=== PATIENT | female | born 1940 | race Caucasian/White ===

== ENCOUNTER 2023-11-13 13:51 | Inpatient (IN) | payer MEDICARE, OTHER ==
[~2023-11-13] VITALS: Ht 165.1 cm; Wt 60.8 kg
[2023-11-13 14:18] LABS: BASOPHILS # (AUTO) 0.1 K/UL (0.0-0.2); EOSINOPHILS % (AUTO) 0.6 % (0.0-7.0); HEMOGLOBIN 13.4 g/dL (10.9-14.3); LYMPHOCYTES # (AUTO) 0.9 K/uL (0.8-4.8); MEAN CORPUSCULAR HEMOGLOBIN 28.8 uug (24.7-32.8); MEAN CORPUSCULAR HGB CONC 32 g/dL (32.3-35.6); MEAN CORPUSCULAR VOLUME 90.3 fL (75.5-95.3); MONOCYTES # (AUTO) 0.9 K/uL (0.1-1.30); NEUTROPHILS # (AUTO) 3.7 K/uL (1.8-8.9); NEUTROPHILS % (AUTO) 66.4 % (38.5-71.5); PLATELET COUNT (AUTO) 155 K/uL (179-408); RED BLOOD CELL COUNT(AUTO) 4.65 MIL/uL (3.63-4.92); RED CELL DISTRIBUTION WIDTH 19.4 % (12.3-17.7); WHITE BLOOD COUNT (AUTO) 5.5 K/uL (3.8-11.8)
[2023-11-13 14:19] LABS: DIFFERENTIAL COMMENT 1
[2023-11-13] MEDS ORDERED: DILTIAZEM HCL 25 MG IV ONE ×2 (14:28→17:23)
[2023-11-13 14:42] LABS: MAGNESIUM 2.1 mg/dL (1.8-2.4)
[2023-11-13 14:43] LABS: CARBON DIOXIDE 28 mmol/L (21-32); CHLORIDE 105 mmol/L (98-107); POTASSIUM 3.6 mmol/L (3.5-5.1); SODIUM SERUM 143 mmol/L (136-145)
[2023-11-13 14:44] LABS: CALCIUM 8.4 mg/dL (8.5-10.1); CREATININE 0.5 mg/dL (0.6-1.3); GLUCOSE 129 mg/dL (74-106); UREA NITROGEN, BLOOD 33 mg/dL (7-18)
[2023-11-13] MEDS: DILTIAZEM HCL 25 MG IV IV ONE ×2 (14:45→17:33)
[2023-11-13] MEDS: IV NORMAL SALINE 1000 ML BAG IV ONE (14:45)
[2023-11-13 14:47] LABS: *BLOOD, URINE NEGATIVE (NEGATIVE); *CLARITY,URINE CLEAR (CLEAR); *COLOR,URINE YELLOW (YELLOW); *PROTEIN,URINE 1+ (NEGATIVE); PH,URINE 6.5 (5.0-8.0); UGLUCOSE NEGATIVE (NEGATIVE)
[2023-11-13 14:48] LABS: *BILIRUBIN,URIN NEGATIVE (NEGATIVE); *KETONES,URINE 4+ (NEGATIVE); *UROBILINOGEN,URINE 0.2 E.U./dl (NORMAL); LEUKOCYTE ESTERASE ,URINE 2+ (NEGATIVE); NITRITE, URINE NEGATIVE (NEGATIVE)
[2023-11-13 14:51] LABS: ALANINE AMINOTRANSFERASE 35 U/L (14-59); ALKALINE PHOSPHATASE 105 U/L (50-136); ASPARTATE AMINOTRANSFERASE 37 U/L (15-37); BILIRUBIN,DIRECT 0.6 mg/dL (0.0-0.2); BILIRUBIN,TOTAL 1.1 mg/dL (0.2-1.0)
[2023-11-13 14:52] LABS: ALBUMIN 2.3 g/dL (3.4-5.0); TOTAL PROTEIN, SERUM 5.9 g/dL (6.4-8.2)
[2023-11-13 14:57] LABS: THYROID STIMULATING HORMONE 7.749 mIU/mL (0.358-3.740)
[2023-11-13] MEDS ORDERED: ENOXAPARIN SODIUM 60 MG/0.6 ML DISP.SYRIN SQ ONE (15:39)
[2023-11-13] MEDS: ENOXAPARIN SODIUM 60 MG/0.6 ML DISP.SYRIN SQ ONE (15:51)
[2023-11-13 16:19] LABS: BACTERIA,URINE FEW /HPF (NONE SEEN); RBC,URINE 0-3 /HPF (0-3); SQUAMOUS EPITHELIAL CELL,UR MANY /HPF (NONE SEEN); WBC,URINE 20-50 /HPF (0-3)
[2023-11-13 17:01] LABS: BAND % (MANUAL) 1 % (0-10); EOSINOPHILS % (MANUAL) 1 % (0-8); LYMPHOCYTES % (MANUAL) 14 % (20-40); MONOCYTES % (MANUAL) 14 % (2-10); NEUTROPHILS % (MANUAL) 70 % (42-75); PLATELET ESTIMATE ADEQUATE
[2023-11-13 17:02] LABS: ANISOCYTOSIS 1+; OVALOCYTES 1+; TEAR DROP CELLS 1+
[2023-11-13] MEDS ORDERED: CEFTRIAXONE /D5W 50ML IVPB **ER PYXIS IV ONE (17:23)
[2023-11-13] MEDS: CEFTRIAXONE 1 G in IV DEXTROSE 5% 50 ML IV ONE (17:33)
[2023-11-13] MEDS ORDERED: ACETAMINOPHEN 325 MG TABLET PO PRN (20:00)
[2023-11-13] MEDS ORDERED: ONDANSETRON 4 MG/2 ML VIAL IV PRN (20:00)
[2023-11-13] MEDS ORDERED: LEVALBUTEROL HCL NEB 0.63 MG/3 ML NEBU NEB PRN (20:00)
[2023-11-13] MEDS ORDERED: MORPHINE SULFATE 2 MG/1 ML DISP.SYRIN IV PRN (20:00)
[2023-11-13 20:21] VITALS: O2SAT 96
[2023-11-13 21:14] VITALS: BP 102/80; TEMP 98.2; O2SAT 97
[2023-11-13] MEDS: DOCUSATE SODIUM 100 MG CAPSULE PO SCH (21:30)
[2023-11-13] MEDS: FUROSEMIDE 20 MG/2 ML VIAL IV SCH (21:30)
[2023-11-13] MEDS: APIXABAN 2.5 MG TABLET PO SCH (21:31)
[2023-11-13] MEDS: DILTIAZEM HCL 30 MG TABLET PO SCH (23:28)
[2023-11-14] VITALS (8 sets, daily range): BP systolic 106–132; BP diastolic 51–78; TEMP 96.7–98.3; O2SAT 91–99
[2023-11-14] MEDS: PANTOPRAZOLE SODIUM 40 MG TABLET.DR PO SCH (06:11)
[2023-11-14 06:40] LABS: BASOPHILS # (AUTO) 0.1 K/UL (0.0-0.2); BASOPHILS % (AUTO) 0.9 % (0.0-2.0); EOSINOPHILS # (AUTO) 0.1 K/uL (0.0-0.7); EOSINOPHILS % (AUTO) 1.3 % (0.0-7.0); HEMATOCRIT 41.5 % (31.2-41.9); HEMOGLOBIN 13.1 g/dL (10.9-14.3); LYMPHOCYTES # (AUTO) 0.9 K/uL (0.8-4.8); LYMPHOCYTES % (AUTO) 13.6 % (20.5-51.5); MEAN CORPUSCULAR HGB CONC 32 g/dL (32.3-35.6); MEAN CORPUSCULAR VOLUME 91.8 fL (75.5-95.3); MONOCYTES # (AUTO) 0.9 K/uL (0.1-1.30); MONOCYTES % (AUTO) 13.2 % (0.0-11.0); NEUTROPHILS # (AUTO) 4.8 K/uL (1.8-8.9); PLATELET COUNT (AUTO) 100 K/uL (179-408); RED BLOOD CELL COUNT(AUTO) 4.52 MIL/uL (3.63-4.92); RED CELL DISTRIBUTION WIDTH 20.1 % (12.3-17.7); WHITE BLOOD COUNT (AUTO) 6.8 K/uL (3.8-11.8)
[2023-11-14 07:20] LABS: DIFFERENTIAL COMMENT 1
[2023-11-14 09:09] LABS: IRON, SERUM 77 ug/dL (50-175)
[2023-11-14 09:14] LABS: ALANINE AMINOTRANSFERASE 38 U/L (14-59); ALBUMIN 2.1 g/dL (3.4-5.0); ALKALINE PHOSPHATASE 104 U/L (50-136); ASPARTATE AMINOTRANSFERASE 37 U/L (15-37); CALCIUM 7.7 mg/dL (8.5-10.1); CARBON DIOXIDE 25 mmol/L (21-32); CHLORIDE 105 mmol/L (98-107); CHOLESTEROL 114 mg/dL (<200); CREATININE 0.5 mg/dL (0.6-1.3); GLUCOSE 80 mg/dL (74-106); HDL CHOLESTEROL 50 mg/dL (40-60); NT-PRO BNP 3413 pg/mL (0-125); PHOSPHOROUS 2.4 mg/dL (2.5-4.9); POTASSIUM 3.3 mmol/L (3.5-5.1); SODIUM SERUM 142 mmol/L (136-145); TOTAL PROTEIN, SERUM 5.5 g/dL (6.4-8.2); TRIGLYCERIDES 68 MG/DL (30-150); UREA NITROGEN, BLOOD 23 mg/dL (7-18)
[2023-11-14] MEDS: POTASSIUM PHOSPHATE MM 15 MMOL in IV NORMAL SALINE 250 ML IV ONE (12:20)
[2023-11-14] MEDS ORDERED: ACET325T53 PO (12:30)
[2023-11-14] MEDS ORDERED: AMIO200T5 PO (12:30)
[2023-11-14] MEDS ORDERED: TERI14TA PO (12:32)
[2023-11-14] MEDS ORDERED: BALS60OI4 TP (12:34)
[2023-11-14] MEDS ORDERED: POVI3780 TP (12:37)
[2023-11-14] MEDS ORDERED: VITAMIND3 PO (12:41)
[2023-11-14] MEDS ORDERED: CYAN100085 PO (12:43)
[2023-11-14] MEDS ORDERED: DEXT1CAP3 PO (12:43)
[2023-11-14] MEDS ORDERED: DALF10TA PO (12:43)
[2023-11-14] MEDS ORDERED: DILT-32 PO (12:43)
[2023-11-14] MEDS ORDERED: APIX5TAB PO (12:45)
[2023-11-14] MEDS ORDERED: GABA300C PO (12:45)
[2023-11-14] MEDS ORDERED: FURO20TA4 PO (12:45)
[2023-11-14] MEDS ORDERED: POTA10CA43 PO (13:02)
[2023-11-14] MEDS ORDERED: MAGN250T10 PO (13:02)
[2023-11-14] MEDS ORDERED: HONE15GE TP (13:02)
[2023-11-14] MEDS ORDERED: ZINC220C6 PO (13:02)
[2023-11-14] MEDS ORDERED: MIRA50TA PO (13:02)
[2023-11-14] MEDS ORDERED: MULT-225 PO (13:02)
[2023-11-14] MEDS ORDERED: HYDR-4077 PO (13:02)
[2023-11-14] MEDS ORDERED: METO50TA16 PO (13:02)
[2023-11-14] MEDS ORDERED: POLY17PO4 PO (13:02)
[2023-11-14] MEDS ORDERED: ASCO500C18 PO (13:02)
[2023-11-14] MEDS ORDERED: SENN8.6T19 PO (13:02)
[2023-11-14] MEDS ORDERED: LUTE20CA PO (13:03)
[2023-11-14] MEDS ORDERED: ZINC56.713 TP (13:11)
[2023-11-14] MEDS ORDERED: MICO71PO11 TP (13:14)
[2023-11-14] MEDS ORDERED: DOXY100C PO (13:15)
[2023-11-14] MEDS ORDERED: BACI1CAP6 PO (13:18)
[2023-11-14] MEDS ORDERED: METO100T14 PO (13:19)
[2023-11-14] MEDS: GABAPENTIN 300 MG CAPSULE PO SCH (14:53)
[2023-11-14] MEDS: AMIODARONE HCL 200 MG TABLET PO SCH (14:54)
[2023-11-14] MEDS ORDERED: POTASSIUM CHLORIDE 10 MEQ TAB.PRT.SR PO SCH (17:00)
[2023-11-14] MEDS: CULTURELLE CAPSULE PO SCH (17:12)
[2023-11-14] MEDS: ASCORBIC ACID 500 MG TABLET PO SCH (17:12)
[2023-11-14] MEDS: DOXYCYCLINE HYCLATE 100 MG TABLET PO SCH (17:27)
[2023-11-14] MEDS: CEFTRIAXONE 1 G in IV DEXTROSE 5% 50 ML IV SCH (18:07)
[2023-11-14] MEDS: BLOOD SUGAR DIAGNOSTIC 1 EACH STRIP VI SCH (20:39)
[2023-11-14] MEDS: INSULIN REGULAR, HUMAN 300 UNIT/3 ML VIAL SQ PRN (20:42)
[2023-11-14] MEDS ORDERED: Medication Not On Formulary EA (Dalfampridine (Ampyra) 10 MG) PO SCH (21:00)
[2023-11-14] MEDS ORDERED: APIXABAN 5 MG TABLET PO SCH (21:00)
[2023-11-14] MEDS ORDERED: Medication Not On Formulary EA (Dextromethorphan Hbr/Quinidine (Nuedexta 20-10 Mg Capsul PO SCH (21:00)
[2023-11-15] VITALS (7 sets, daily range): BP systolic 106–133; BP diastolic 61–86; TEMP 97.5–98.4; O2SAT 93–97
[2023-11-15] MEDS: MULTIVITAMINS,THERAPEUTIC TABLET PO SCH (08:23)
[2023-11-15] MEDS: CYANOCOBALAMIN 1,000 MCG TABLET PO SCH (08:24)
[2023-11-15] MEDS: SENNOSIDES 1 TABLET PO SCH (08:24)
[2023-11-15] MEDS: ZINC SULFATE 220 MG CAPSULE PO SCH (08:24)
[2023-11-15] MEDS: GLIMEPIRIDE 2 MG TABLET PO SCH (08:25)
[2023-11-15] MEDS: MIRALAX 17 GM POWD.PACK PO SCH (08:26)
[2023-11-15] MEDS: ZINC OXIDE OINT 30 GM TUBE TP SCH (08:28)
[2023-11-15] MEDS ORDERED: TERIFLUNOMIDE 14 MG PO SCH (09:00)
[2023-11-15] MEDS ORDERED: Medication Not On Formulary EA (Lutein 20 MG) PO SCH (09:00)
[2023-11-15] MEDS ORDERED: FUROSEMIDE 20 MG TABLET PO SCH (09:00)
[2023-11-15] MEDS ORDERED: MAGNESIUM OXIDE 250 MG TABLET PO SCH (09:00)
[2023-11-15] MEDS: AMIODARONE HCL IV 150 MG in IV DEXTROSE 5% 100 ML IV ONE (09:13)
[2023-11-15] MEDS: AMIODARONE HCL IV 450 MG in IV DEXTROSE 5% 250 ML IV PRN (09:21)
[2023-11-15] MEDS: DILTIAZEM HCL 30 MG TABLET PO SCH (11:44)
[2023-11-15 16:13] LABS: BASOPHILS # (AUTO) 0.1 K/UL (0.0-0.2); BASOPHILS % (AUTO) 0.9 % (0.0-2.0); EOSINOPHILS # (AUTO) 0.1 K/uL (0.0-0.7); EOSINOPHILS % (AUTO) 1.6 % (0.0-7.0); HEMATOCRIT 39.7 % (31.2-41.9); HEMOGLOBIN 12.7 g/dL (10.9-14.3); LYMPHOCYTES # (AUTO) 1.2 K/uL (0.8-4.8); LYMPHOCYTES % (AUTO) 16.3 % (20.5-51.5); MEAN CORPUSCULAR HEMOGLOBIN 28.9 uug (24.7-32.8); MEAN CORPUSCULAR HGB CONC 32 g/dL (32.3-35.6); MEAN CORPUSCULAR VOLUME 90.4 fL (75.5-95.3); MONOCYTES # (AUTO) 0.6 K/uL (0.1-1.30); MONOCYTES % (AUTO) 8.9 % (0.0-11.0); NEUTROPHILS # (AUTO) 5.3 K/uL (1.8-8.9); NEUTROPHILS % (AUTO) 72.3 % (38.5-71.5); PLATELET COUNT (AUTO) 123 K/uL (179-408); RED BLOOD CELL COUNT(AUTO) 4.39 MIL/uL (3.63-4.92); RED CELL DISTRIBUTION WIDTH 19.6 % (12.3-17.7); WHITE BLOOD COUNT (AUTO) 7.3 K/uL (3.8-11.8)
[2023-11-15 16:14] LABS: DIFFERENTIAL COMMENT 1
[2023-11-15 16:18] LABS: CALCIUM 7.9 mg/dL (8.5-10.1); CREATININE 0.7 mg/dL (0.6-1.3); POTASSIUM 3.5 mmol/L (3.5-5.1)
[2023-11-15 16:22] LABS: PHOSPHOROUS 2.7 mg/dL (2.5-4.9)
[2023-11-15] MEDS: POTASSIUM CHLORIDE 20 MEQ TAB.PRT.SR PO ONE (17:06)
[2023-11-16 03:21] VITALS: O2SAT 98
[2023-11-16] MEDS: DEXTROSE 50% 50 ML DISP.SYRIN IV PRN (06:24)
[2023-11-16 06:31] VITALS: BP 122/81; TEMP 97.7; O2SAT 98
[2023-11-16 07:21] VITALS: BP 133/71; TEMP 97.6; O2SAT 98
[2023-11-16] MEDS: FUROSEMIDE 20 MG TABLET PO SCH (08:14)
[2023-11-16 08:21] LABS: ALANINE AMINOTRANSFERASE 25 U/L (14-59); ALKALINE PHOSPHATASE 103 U/L (50-136); ASPARTATE AMINOTRANSFERASE 23 U/L (15-37); BILIRUBIN,TOTAL 0.8 mg/dL (0.2-1.0); CALCIUM 7.6 mg/dL (8.5-10.1); CARBON DIOXIDE 31 mmol/L (21-32); CHLORIDE 102 mmol/L (98-107); CREATININE 0.6 mg/dL (0.6-1.3); GLUCOSE 118 mg/dL (74-106); MAGNESIUM 1.7 mg/dL (1.8-2.4); POTASSIUM 3.8 mmol/L (3.5-5.1); SODIUM SERUM 138 mmol/L (136-145); TOTAL PROTEIN, SERUM 5.5 g/dL (6.4-8.2); UREA NITROGEN, BLOOD 31 mg/dL (7-18)
[2023-11-16 08:51] LABS: BASOPHILS # (AUTO) 0.1 K/UL (0.0-0.2); BASOPHILS % (AUTO) 0.8 % (0.0-2.0); EOSINOPHILS # (AUTO) 0.1 K/uL (0.0-0.7); EOSINOPHILS % (AUTO) 1.3 % (0.0-7.0); HEMATOCRIT 38.1 % (31.2-41.9); HEMOGLOBIN 12.5 g/dL (10.9-14.3); LYMPHOCYTES # (AUTO) 0.9 K/uL (0.8-4.8); LYMPHOCYTES % (AUTO) 14.4 % (20.5-51.5); MEAN CORPUSCULAR HEMOGLOBIN 29.3 uug (24.7-32.8); MEAN CORPUSCULAR HGB CONC 33 g/dL (32.3-35.6); MEAN CORPUSCULAR VOLUME 89.6 fL (75.5-95.3); MONOCYTES # (AUTO) 0.6 K/uL (0.1-1.30); MONOCYTES % (AUTO) 9.4 % (0.0-11.0); NEUTROPHILS # (AUTO) 4.8 K/uL (1.8-8.9); NEUTROPHILS % (AUTO) 74.1 % (38.5-71.5); PLATELET COUNT (AUTO) 110 K/uL (179-408); RED BLOOD CELL COUNT(AUTO) 4.25 MIL/uL (3.63-4.92); RED CELL DISTRIBUTION WIDTH 19.6 % (12.3-17.7); WHITE BLOOD COUNT (AUTO) 6.5 K/uL (3.8-11.8)
[2023-11-16 08:54] LABS: DIFFERENTIAL COMMENT 1
[2023-11-16] MEDS: MAGNESIUM SULFATE/D5W 100 ML IV SCH (09:28)
[2023-11-16] MEDS: DILTIAZEM HCL 60 MG TABLET PO SCH (11:56)
[2023-11-16 12:00] VITALS: BP 109/80; TEMP 97.2; O2SAT 97
[2023-11-16] MEDS ORDERED: DILTIAZEM HCL 30 MG TABLET PO SCH (12:00)
[2023-11-16] MEDS: GLUCERNA SHAKE 237 ML CAN PO SCH (13:02)
[2023-11-16 15:54] VITALS: BP 126/78; TEMP 97.6; O2SAT 97
[2023-11-16 20:41] VITALS: BP 117/62; TEMP 97.9; O2SAT 94
[2023-11-16] MEDS: CEFDINIR 300 MG CAPSULE PO SCH (21:06)
[2023-11-17] VITALS (9 sets, daily range): BP systolic 111–128; BP diastolic 62–84; TEMP 97.4–98.6; O2SAT 92–97
[2023-11-17 09:51] LABS: CALCIUM 8.3 mg/dL (8.5-10.1); CREATININE 0.7 mg/dL (0.6-1.3); MAGNESIUM 2.1 mg/dL (1.8-2.4); POTASSIUM 3.9 mmol/L (3.5-5.1)
[2023-11-17] MEDS: DILTIAZEM HCL CD 240 MG CAP.SR.24H PO SCH (10:06)
[2023-11-17] MEDS: METOPROLOL SUCCINATE XL 50 MG TAB.SR.24H PO SCH (20:45)
[2023-11-18] VITALS (8 sets, daily range): BP systolic 101–129; BP diastolic 50–71; TEMP 97.4–98.2; O2SAT 92–98
[2023-11-18 09:08] LABS: BASOPHILS % (AUTO) 0.6 % (0.0-2.0); DIFFERENTIAL COMMENT 0; EOSINOPHILS % (AUTO) 0.5 % (0.0-7.0); HEMATOCRIT 36.7 % (31.2-41.9); HEMOGLOBIN 11.9 g/dL (10.9-14.3); LYMPHOCYTES # (AUTO) 1.1 K/uL (0.8-4.8); LYMPHOCYTES % (AUTO) 16.2 % (20.5-51.5); MEAN CORPUSCULAR HGB CONC 32 g/dL (32.3-35.6); MEAN CORPUSCULAR VOLUME 89.4 fL (75.5-95.3); MONOCYTES # (AUTO) 0.4 K/uL (0.1-1.30); MONOCYTES % (AUTO) 6.2 % (0.0-11.0); NEUTROPHILS # (AUTO) 5.4 K/uL (1.8-8.9); NEUTROPHILS % (AUTO) 76.5 % (38.5-71.5); PLATELET COUNT (AUTO) 121 K/uL (179-408)
[2023-11-18 09:17] LABS: CALCIUM 8.2 mg/dL (8.5-10.1); CREATININE 0.6 mg/dL (0.6-1.3); MAGNESIUM 1.9 mg/dL (1.8-2.4); PHOSPHOROUS 3.3 mg/dL (2.5-4.9); POTASSIUM 3.8 mmol/L (3.5-5.1)
[2023-11-19 06:27] VITALS: BP 107/69; TEMP 97.6; O2SAT 95
[2023-11-19] MEDS ORDERED: ALBUTEROL SULFATE 1.25 MG/3 ML NEBU NEB PRN (06:45)
[2023-11-19 07:28] LABS: BASOPHILS # (AUTO) 0.1 K/UL (0.0-0.2); BASOPHILS % (AUTO) 1.2 % (0.0-2.0); EOSINOPHILS # (AUTO) 0.2 K/uL (0.0-0.7); EOSINOPHILS % (AUTO) 3.5 % (0.0-7.0); HEMATOCRIT 36.9 % (31.2-41.9); HEMOGLOBIN 11.9 g/dL (10.9-14.3); LYMPHOCYTES # (AUTO) 1.1 K/uL (0.8-4.8); LYMPHOCYTES % (AUTO) 22.6 % (20.5-51.5); MEAN CORPUSCULAR HEMOGLOBIN 29.1 uug (24.7-32.8); MEAN CORPUSCULAR HGB CONC 32 g/dL (32.3-35.6); MEAN CORPUSCULAR VOLUME 90.2 fL (75.5-95.3); MONOCYTES # (AUTO) 0.6 K/uL (0.1-1.30); MONOCYTES % (AUTO) 13.5 % (0.0-11.0); NEUTROPHILS # (AUTO) 2.8 K/uL (1.8-8.9); NEUTROPHILS % (AUTO) 59.2 % (38.5-71.5); PLATELET COUNT (AUTO) 113 K/uL (179-408); RED BLOOD CELL COUNT(AUTO) 4.09 MIL/uL (3.63-4.92); RED CELL DISTRIBUTION WIDTH 18.7 % (12.3-17.7); WHITE BLOOD COUNT (AUTO) 4.8 K/uL (3.8-11.8)
[2023-11-19 07:34] LABS: DIFFERENTIAL COMMENT 1
[2023-11-19 07:38] LABS: CALCIUM 8.2 mg/dL (8.5-10.1); CARBON DIOXIDE 34 mmol/L (21-32); CHLORIDE 102 mmol/L (98-107); CREATININE 0.5 mg/dL (0.6-1.3); GLUCOSE 96 mg/dL (74-106); MAGNESIUM 1.9 mg/dL (1.8-2.4); POTASSIUM 3.5 mmol/L (3.5-5.1); SODIUM SERUM 138 mmol/L (136-145); UREA NITROGEN, BLOOD 30 mg/dL (7-18)
[2023-11-19 07:50] VITALS: O2SAT 96
[2023-11-19 12:00] VITALS: BP 128/84; TEMP 97.6; O2SAT 96
[2023-11-19 16:04] VITALS: BP 143/83; TEMP 98.3; O2SAT 90
[2023-11-19 20:00] VITALS: BP 121/67; TEMP 98.3; O2SAT 96
[2023-11-20 06:00] VITALS: BP 133/87; TEMP 97.9; O2SAT 95
[2023-11-20 06:42] LABS: BASOPHILS % (AUTO) 0.9 % (0.0-2.0); EOSINOPHILS # (AUTO) 0.2 K/uL (0.0-0.7); EOSINOPHILS % (AUTO) 3.2 % (0.0-7.0); HEMATOCRIT 37.5 % (31.2-41.9); LYMPHOCYTES # (AUTO) 1.2 K/uL (0.8-4.8); LYMPHOCYTES % (AUTO) 22.2 % (20.5-51.5); MEAN CORPUSCULAR HEMOGLOBIN 28.9 uug (24.7-32.8); MEAN CORPUSCULAR HGB CONC 32 g/dL (32.3-35.6); MEAN CORPUSCULAR VOLUME 90.5 fL (75.5-95.3); MONOCYTES # (AUTO) 0.8 K/uL (0.1-1.30); MONOCYTES % (AUTO) 14.4 % (0.0-11.0); NEUTROPHILS # (AUTO) 3.2 K/uL (1.8-8.9); NEUTROPHILS % (AUTO) 59.3 % (38.5-71.5); PLATELET COUNT (AUTO) 134 K/uL (179-408); RED BLOOD CELL COUNT(AUTO) 4.14 MIL/uL (3.63-4.92); RED CELL DISTRIBUTION WIDTH 18.8 % (12.3-17.7); WHITE BLOOD COUNT (AUTO) 5.3 K/uL (3.8-11.8)
[2023-11-20 06:54] LABS: DIFFERENTIAL COMMENT 1
[2023-11-20 07:15] LABS: CARBON DIOXIDE 33 mmol/L (21-32); CHLORIDE 103 mmol/L (98-107); CREATININE 0.5 mg/dL (0.6-1.3); GLUCOSE 90 mg/dL (74-106); MAGNESIUM 1.8 mg/dL (1.8-2.4); PHOSPHOROUS 3.1 mg/dL (2.5-4.9); POTASSIUM 3.8 mmol/L (3.5-5.1); SODIUM SERUM 139 mmol/L (136-145); UREA NITROGEN, BLOOD 29 mg/dL (7-18)
[2023-11-20 08:15] VITALS: O2SAT 95
[2023-11-20 08:17] VITALS: BP 122/76; TEMP 97.6
[2023-11-20] MEDS: MEDIHONEY= THERAHONEY 1.5 OZ TUBE TOP SCH (09:00)
[2023-11-20 11:30] VITALS: BP 113/62; TEMP 97.7; O2SAT 96
[2023-11-20 16:00] VITALS: BP 120/69; TEMP 97.6; O2SAT 100; O2SAT 97
[2023-11-20 20:00] VITALS: BP 131/68; TEMP 98.3; O2SAT 94
[2023-11-21 05:07] VITALS: O2SAT 96
[2023-11-21 06:00] VITALS: BP 129/84; TEMP 97.6; O2SAT 93
[2023-11-21 12:03] VITALS: BP 131/76; TEMP 97.3; O2SAT 99
[2023-11-21 13:23] VITALS: O2SAT 95
[2023-11-21 15:19] VITALS: BP 126/51; TEMP 97.7; O2SAT 96
[2023-11-21 21:00] VITALS: TEMP 97.3
[2023-11-22 04:36] VITALS: O2SAT 95
[2023-11-22 06:51] VITALS: TEMP 97.3
[2023-11-22 07:30] VITALS: O2SAT 96
[2023-11-22] MEDS ORDERED: DILT240C88 PO (11:46)
[2023-11-22] MEDS ORDERED: APIX2.5T PO (11:46)
[2023-11-22] MEDS ORDERED: METO-357 PO (11:46)
[2023-11-22 11:51] VITALS: BP 134/77; TEMP 98.1; O2SAT 96
[2023-11-22 12:00] VITALS: O2SAT 96
== END 2023-11-22 14:30 | DRG 853 ==
LOC: ER 13:52 → TELE3 19:19 → TELE-TD3 11-15 08:25 → TELE3 11-17 10:25 → MEDSURG3 11-18 09:12
PROVIDERS: ADMIT Internal Medicine; ATTEND Internal Medicine
PROC: 0JBP0ZZ Excision of Left Lower Leg Subcutaneous Tissue and Fascia, Open Approach (ICD-10-PCS; principal; 2023-11-15)
PROC: 05HC33Z Insertion of Infusion Device into Left Basilic Vein, Percutaneous Approach (ICD-10-PCS; 2023-11-15)
DX: A41.9 Sepsis, unspecified organism (principal); E43 Unspecified severe protein-calorie malnutrition; G92.8 Other toxic encephalopathy; I50.43 Acute on chronic combined systolic (congestive) and diastolic (congestive) heart failure; J96.21 Acute and chronic respiratory failure with hypoxia; N39.0 Urinary tract infection, site not specified; T87.44 Infection of amputation stump, left lower extremity; D68.59 Other primary thrombophilia; I48.0 Paroxysmal atrial fibrillation; T87.81 Dehiscence of amputation stump; J44.9 Chronic obstructive pulmonary disease, unspecified; Z74.09 Other reduced mobility; Z86.16 Personal history of COVID-19; G35 Multiple sclerosis; M06.9 Rheumatoid arthritis, unspecified; I25.2 Old myocardial infarction; I25.10 Atherosclerotic heart disease of native coronary artery without angina pectoris; I11.0 Hypertensive heart disease with heart failure; E11.51 Type 2 diabetes mellitus with diabetic peripheral angiopathy without gangrene; E80.6 Other disorders of bilirubin metabolism; F09 Unspecified mental disorder due to known physiological condition; Y83.5 Amputation of limb(s) as the cause of abnormal reaction of the patient, or of later complication, without mention of misadventure at the time of the procedure; F03.90 Unspecified dementia, unspecified severity, without behavioral disturbance, psychotic disturbance, mood disturbance, and anxiety; Z79.01 Long term (current) use of anticoagulants; Z98.42 Cataract extraction status, left eye; Z88.6 Allergy status to analgesic agent; Z88.1 Allergy status to other antibiotic agents; Z88.5 Allergy status to narcotic agent; Z89.512 Acquired absence of left leg below knee; Z68.21 Body mass index [BMI] 21.0-21.9, adult; Z90.710 Acquired absence of both cervix and uterus
CPT/HCPCS: 36415; 70030-TC; 71045; 83550; 83605; 83735; 84100; 84443; 84484; 85025; 85730; 93005; 93307; A6209; A6213; A9150; G0378; J0282; J0696; J1650; J1815; J1940; J3475; J3490; J7050

== ENCOUNTER → 2023-11-13 | Emergency (ER) | payer MEDICARE, OTHER ==
[~2023-11-13] VITALS: Ht 165.1 cm; Wt 59.0 kg
[~2023-11-13] MED LIST: ACET325T53 PO; AMIO200T5 PO; APIX2.5T PO; APIX5TAB PO; ASCO500C18 PO; BACI1CAP6 PO; BALS60OI4 TP; CYAN100085 PO; DALF10TA PO; DEXT1CAP3 PO; DILT-32 PO; DILT240C88 PO; DOXY100C PO; FURO20TA4 PO; GABA300C PO; HONE15GE TP; HYDR-4077 PO; LUTE20CA PO; MAGN250T10 PO; METO-357 PO; METO100T14 PO; METO50TA16 PO; MICO71PO11 TP; MIRA50TA PO; MULT-225 PO; POLY17PO4 PO; POTA10CA43 PO; POVI3780 TP; SENN8.6T19 PO; TERI14TA PO; VITAMIND3 PO; ZINC220C6 PO; ZINC56.713 TP
[2023-11-13 13:38] VITALS: O2SAT 96
== END | disposition home or self-care (01) ==
LOC: ER 13:36
DX: Z53.21 Procedure and treatment not carried out due to patient leaving prior to being seen by health care provider (principal)
CPT/HCPCS: A4606; A4663; J7040